=== PATIENT | male | born 1995 | race Caucasian/White ===

== ENCOUNTER 2020-06-06 17:49 | Emergency (ER) | payer OTHER ==
[~2020-06-06] VITALS: Ht 180.3 cm; Wt 143.8 kg
[2020-06-06 18:09] VITALS: Ht 180.3 cm; Wt 143.8 kg
[2020-06-06 19:49] VITALS: BP 163/83
== END 2020-06-06 19:49 | disposition home or self-care (01) ==
LOC: ED 17:49
DX: L02.511 Cutaneous abscess of right hand (principal); L03.115 Cellulitis of right lower limb; F31.9 Bipolar disorder, unspecified
CPT/HCPCS: J0696; J1885; J2001